=== PATIENT | female | born 1935 | race American Indian/Alaskan Native ===

== ENCOUNTER 2017-11-20 10:42 | Emergency (ER) | payer MEDICARE, OTHER ==
[2017-11-20 10:50] VITALS: BMI 28.3
[2017-11-20] MEDS ORDERED: Lidocaine 5% Patch TD STA (11:31)
--- NOTE | 2017-11-20 11:31 | C.PDOC ---
History Of Present Illness 81-YEAR-OLD FEMALE, PRESENTS TO THE EMERGENCY DEPARTMENT WITH COMPLAINTS OF NEW ONSET RIGHT-LOWER BACK PAIN STARTED AT 04:00 THIS MORNING. PAIN IS LOCALIZED AND INTERMITTENT IN NATURE, PRESENT ONLY W MOVEMENT. PT TOOK TYLENOL AT 04:00 THIS MORNING W LIMITED IMPROV DENIES HX OF CHRONIC BP, TRAUMA, NO FEVER OR UTI SX. EXAM MILD DISC NO C/T/L SPINE TEN SPASM R-LOWER BACK, LOCAL AND REPROD PAIN Time Seen by Provider: 11/20/17 11:05 Chief Complaint (Nursing): Back Pain History Per: Patient History/Exam Limitations: no limitations Onset/Duration Of Symptoms: Days Current Symptoms Are (Timing): Still Present Past Medical History Reviewed: Historical Data, Nursing Documentation, Vital Signs Vital Signs: Last Vital Signs Temp 98.5 F 11/20/17 10:52 Pulse 78 11/20/17 13:13 Resp 18 11/20/17 13:13 BP 141/85 11/20/17 13:13 Pulse Ox 96 11/20/17 13:18 - Medical History PMH: HTN, Hypercholesterolemia Family History: States: No Known Family Hx - Social History Hx Alcohol Use: No Hx Substance Use: No - Immunization History Hx Tetanus Toxoid Vaccination: No Hx Influenza Vaccination: No Hx Pneumococcal Vaccination: Yes Review Of Systems Except As Marked, All Systems Reviewed And Found Negative. Constitutional: Negative for: Fever, Chills Cardiovascular: Negative for: Chest Pain, Palpitations Respiratory: Negative for: Shortness of Breath Gastrointestinal: Negative for: Nausea, Vomiting Musculoskeletal: Positive for: Back Pain Neurological: Negative for: Weakness, Numbness Physical Exam - Physical Exam Appears: Non-toxic, No Acute Distress Skin: Warm, Dry, No Rash Head: Atraumatic, Normacephalic Eye(s): bilateral: Normal Inspection, PERRL Nose: Normal Oral Mucosa: Moist Lips: Normal Appearing Neck: Normal ROM Cardiovascular: Rhythm Regular, No Murmur Respiratory: Normal Breath Sounds, No Accessory Muscle Use Back: No Vertebral Tenderness (NO THORACIC/LUMBAR/CERVICAL SPINE TENDERNESS), Muscle Spasm (R LOWER BACK TENDERNESS, LOCALIZED AND REPRODUCIBLE ), No Paraspinal Tenderness Extremity: Normal ROM Neurological/Psych: Oriented x3, Normal Speech ED Course And Treatment - Laboratory Results Result Diagrams: 11/20/17 12:14 11/20/17 12:14 ECG: Interpreted By Me, Viewed By Me ECG Rhythm: Sinus Rhythm ECG Interpretation: No Acute Changes Rate From EC O2 Sat by Pulse Oximetry: 96 (RA) Pulse Ox Interpretation: Normal Progress - Re-Evaluation Re-evaluation Note: 11/20/17 13:14 PS FEELS BETTER W LIDODERM. PENDING UA. DOES NOT WISH IV. 11/20/17 14:29 [place] NEG. APPEARS COMFORTABLE NAD. DC HOME - Data Reviewed Data Reviewed: Lab, Diagnostic imaging Disposition Counseled Patient/Family Regarding: Studies Performed, Diagnosis, Need For Followup, Rx Given - Disposition Referrals: YOUR,PMD [Other] Disposition: HOME/ ROUTINE Disposition Time: 14:28 Condition: IMPROVED Prescriptions: Cyclobenzaprine [Flexeril] 10 mg PO TID #15 tab Lidocaine 5% [Lidoderm] 1 ea TD PRN PRN #10 patch PRN Reason: Pain, Moderate (4-7) Naproxen [Naprosyn] 1 tab PO BID PRN #25 tab PRN Reason: Pain Instructions: Acute Low Back Pain (ED) Forms: [employer] (Malaysian) - Clinical Impression Clinical Impression: Low back pain - Scribe Statement The provider has reviewed the documentation as recorded by the Scribe (Daniel Ordonez) All medical record entries made by the Scribe were at my direction and personally dictated by me. I have reviewed the chart and agree that the record accurately reflects my personal performance of the history, physical exam, medical decision making, and the department course for this patient. I have also personally directed, reviewed, and agree with the discharge instructions and disposition.
[2017-11-20] MEDS ORDERED: Lidocaine 5% Patch TD ONE (11:39)
[2017-11-20 12:17] LABS: BASO # 0.1 K/uL (0.0-0.2); BASO % 1.2 % (0.0-2.0); EOS # 0.2 K/uL (0.0-0.7); EOS % 2.3 % (0.0-4.0); HEMOGLOBIN 13.2 g/dL (11.0-16.0); LYMPH # 2.6 K/uL (1.0-4.3); LYMPH % 26.5 % (20.0-40.0); MEAN CELL VOLUME 82.1 fL (81.0-99.0); MEAN CORPUSCULAR HEMOGLOBIN 28.1 pg (27.0-31.0); MEAN CORPUSCULAR HGB CONC 34.2 g/dL (33.0-37.0); MEAN PLATELET VOLUME 8.2 fL (7.2-11.7); MONO # 0.6 K/uL (0.0-0.8); MONO % 5.9 % (0.0-10.0); NEUT # 6.4 K/uL (1.8-7.0); NEUT % 64.1 % (50.0-75.0); NRBC % 0.2 % (0.0-2.0); RBC 4.71 Mil/uL (3.80-5.20); RED CELL DISTRIBUTION WIDTH 15.5 % (11.5-14.5); WHITE BLOOD COUNT 9.9 K/uL (4.8-10.8)
--- NOTE | 2017-11-20 12:19 | RAD ---
PROCEDURE: Radiographs of the Lumbar Spine. HISTORY: R LOWER BACK PAIN COMPARISON: No prior. FINDINGS: BONES: Vertebral bodies maintained in height. Grade 1 anterolisthesis at L4-5. Transverse processes and posterior elements appear intact. DISC SPACES: Narrowing of L4-5 intervertebral disc space consistent with degenerative disc disease. The remaining intervertebral disc spaces are maintained in height. OTHER FINDINGS: None. IMPRESSION: Degenerative disc disease with grade 1 anterolisthesis at L4-5. Otherwise unremarkable.
[2017-11-20 12:54] LABS: CALCIUM 9.1 mg/dl (8.6-10.4)
[2017-11-20] MEDS ORDERED: Naproxen 275 mg Tab PO STA (13:12)
[2017-11-20] MEDS ORDERED: Naproxen 275 mg Tab PO ONE (13:30)
[2017-11-20 13:55] LABS: SQUAMOUS EPITHIAL 6 /hpf (0-5); URINE BACTERIA OCC (<OCC); URINE BILIRUBIN NEGATIVE (NEGATIVE); URINE BLOOD NEGATIVE (NEGATIVE); URINE CLARITY Hazy (Clear); URINE COLOR Yellow (YELLOW); URINE GLUCOSE (UA) NORMAL (Normal); URINE HYALINE CAST 0-2 /lpf (0-2); URINE LEUKOCYTE ESTERASE NEG Leu/uL (Negative); URINE NITRATE NEGATIVE (NEGATIVE); URINE PROTEIN 1+ mg/dL (NEGATIVE); URINE UROBILINOGEN NORMAL mg/dL (0.2-1.0)
[2017-11-20 14:40] VITALS: BP 136/74; PULSE 66; RESP 20; TEMP 97.9; O2SAT 95
== END 2017-11-20 14:56 | disposition home or self-care (01) ==
LOC: C.ER 10:42
DX: M54.5 Low back pain (principal)